=== PATIENT | male | born 1985 | race Caucasian/White ===

== ENCOUNTER 2016-02-11 15:47 | Emergency (ER) | payer SELFPAY ==
[~2016-02-11] VITALS: Ht 182.8 cm; Wt 97.5 kg
[~2016-02-11 15:47] MED LIST: AMOXICILLIN500 MG PO; AUGMENTIN 875875 MG PO; BACTROBAN CREAM15 GM PO; CATAFLAM50 MG PO; CEPHALEXIN500 M1 PO; CIPROFLOXACIN500 MG PO; CYCLOBENZAPRINE10 MG PO; CYCLOBENZAPRINE5 M3 PO; DAYPRO600 M1 PO; FIORICET 325 MG1 TAB PO; FLEXERIL10 MG PO; FLEXERIL5 MG PO; HYDROCODONE BIT1 T11 PO; IBU-8800 MG PO; KEFLEX500 MG PO; KETOROLAC10 MG PO; MEDROL DOSEPAK4 MG PO; MOTRIN100 M1 PO; MOTRIN800 MG PO; Motrin,Rufen800 MG PO; NAPROSYN500 MG PO; NKHM; NORCO 5-325 TA1 EACH PO; Orphenadrine C100 MG PO; PENICILLIN VK500 MG PO; PENICILLIN-VK500 MG PO; PREDNICOT20 MG PO; PREDNISONE50 MG PO; PYRIDIUM200 MG PO; ROBAXIN750 MG PO; SEROQUEL25 MG PO; SILVADENE,SSD C50 GM T; SINEMET 25-1001 TA1 PO; TYLENOL W/CODEI1 TA2 PO; VIBRAMYCIN100 MG PO; VISTARIL25 MG PO; VOLTAREN50 M1 PO; VOLTAREN75 MG PO; ZOFRAN ODT4 MG SL
[2016-02-11 16:11] LABS: BASO % 0.3 % (0.0-1.0); EOS # 0.2 10*3/uL (0.0-0.4); EOS % 2.5 % (1.0-4.0); HEMOGLOBIN 14.4 g/dl (14.0-18.0); LYMPH # 3.2 10*3/uL (1.3-4.4); LYMPH % 44.1 % (27.0-41.0); MEAN CELL VOLUME 84.8 fl (80.0-94.0); MEAN CORPUSCULAR HGB 29.1 pg (27.0-31.0); MEAN CORPUSCULAR HGB CONC 34.3 g/dl (33.0-37.0); MEAN PLATELET VOLUME 8.9 fl (9.6-12.3); MONO # 0.3 10*3/uL (0.1-1.0); MONO % 4.5 % (3.0-9.0); NEUT # 3.5 10*3/uL (2.3-7.9); NEUT % 48.5 % (47.0-73.0); PLATELET COUNT AUTOMATED 284 10*3/uL (130-400); RED BLOOD COUNT 4.95 10*6/uL (4.50-5.90); RED CELL DISTRI WIDTH 13.1 % (0-14.5); WHITE BLOOD COUNT 7.3 10*3/uL (4.8-10.8)
[2016-02-11 16:34] LABS: ALKALINE PHOSPHATASE 93 U/L (45-117); BILIRUBIN, TOTAL 0.4 mg/dl (0.2-1.0); BUN 12 mg/dl (7-24); CARBON DIOXIDE 24 mmol/L (21-32); CHLORIDE 105 mmol/L (98-107); EST GLOM FILT AFRICAN AMERICAN > 60 ml/min; GLUCOSE 201 mg/dL (65-99); POTASSIUM 3.2 mmol/L (3.5-5.1); SGOT/AST 26 IU/L (3-35); SGPT/ALT 46 U/L (12-78); SODIUM 140 mmol/L (136-145); TOTAL PROTEIN 7.9 gm/dL (6.4-8.2)
== END 2016-02-11 17:59 | disposition home or self-care (01) ==
LOC: ED 15:47
PROVIDERS: Emergency Medicine
DX: T40.1X1A Poisoning by heroin, accidental (unintentional), initial encounter (principal); Y92.9 Unspecified place or not applicable; F14.10 Cocaine abuse, uncomplicated

== ENCOUNTER 2016-03-03 15:38 | Emergency (ER) | payer SELFPAY ==
[~2016-03-03] VITALS: Ht 182.8 cm; Wt 97.5 kg
[2016-03-03 16:32] LABS: BASO % 0.3 % (0.0-1.0); EOS % 0.4 % (1.0-4.0); HEMOGLOBIN 16.2 g/dl (14.0-18.0); LYMPH # 1.9 10*3/uL (1.3-4.4); LYMPH % 25.5 % (27.0-41.0); MEAN CORPUSCULAR HGB 29.3 pg (27.0-31.0); MEAN CORPUSCULAR HGB CONC 34.5 g/dl (33.0-37.0); MEAN PLATELET VOLUME 9.2 fl (9.6-12.3); MONO # 0.3 10*3/uL (0.1-1.0); MONO % 4.2 % (3.0-9.0); NEUT # 5.1 10*3/uL (2.3-7.9); NEUT % 69.3 % (47.0-73.0); PLATELET COUNT AUTOMATED 296 10*3/uL (130-400); RED BLOOD COUNT 5.53 10*6/uL (4.50-5.90); RED CELL DISTRI WIDTH 13.2 % (0-14.5); WHITE BLOOD COUNT 7.4 10*3/uL (4.8-10.8)
[2016-03-03 16:41] LABS: URINE AMPHETAMINES < 1000 (1000ng/ml); URINE BARBITURATES < 200 (200ng/ml); URINE COCAINE > 300 (300ng/ml)
[2016-03-03 16:49] LABS: ALKALINE PHOSPHATASE 86 U/L (45-117); BILIRUBIN, TOTAL 0.7 mg/dl (0.2-1.0); BUN 10 mg/dl (7-24); CARBON DIOXIDE 27 mmol/L (21-32); CHLORIDE 106 mmol/L (98-107); EST GLOM FILT AFRICAN AMERICAN > 60 ml/min; GLUCOSE 97 mg/dL (65-99); POTASSIUM 3.9 mmol/L (3.5-5.1); SGOT/AST 16 IU/L (3-35); SGPT/ALT 31 U/L (12-78); SODIUM 142 mmol/L (136-145); TOTAL PROTEIN 8.5 gm/dL (6.4-8.2)
== END 2016-03-03 17:19 | disposition left against medical advice (07) ==
LOC: ED 15:38
PROVIDERS: Emergency Medicine
DX: F11.23 Opioid dependence with withdrawal (principal); F12.10 Cannabis abuse, uncomplicated; F19.10 Other psychoactive substance abuse, uncomplicated; F17.200 Nicotine dependence, unspecified, uncomplicated; F41.9 Anxiety disorder, unspecified